=== PATIENT | female | born 1955 | race Caucasian/White ===

== ENCOUNTER 2016-06-26 11:42 | Emergency (ER) | payer OTHER ==
[~2016-06-26] VITALS: Ht 160 cm; Wt 85.0 kg
[~2016-06-26 11:42] MED LIST: ALPR0.25 PO; BIOT800T PO; CHOL3000 PO; ESTR0.5T PO; HYDR25TA6 PO; IBUP200T48 PO; LEVO25TA2 PO; OMEP20CA9 PO
[2016-06-26 14:23] VITALS: BP 125/68
[2016-06-26 14:30] LABS: BLOOD UREA NITROGEN 12 mg/dL (7-18)
[2016-06-26 14:36] LABS: HEMOGLOBIN 13.9 g/dL (11.7-16.4)
[2016-06-26 14:40] LABS: ASPARTATE AMINO TRANSFERASE 25 U/L (15-37); IS PT STATUS REG ER OR PRE ER? YES
== END 2016-06-26 15:26 | disposition home or self-care (01) ==
LOC: ED 12:35
DX: R07.89 Other chest pain (principal); E03.9 Hypothyroidism, unspecified
CPT/HCPCS: 36415; 71010; 80053; 84484; 85025; 85610; 85730; 93005

== ENCOUNTER → 2017-06-21 | Outpatient (CLI) | payer OTHER ==
[~2017-06-21] MED LIST changes: -IBUP200T48 PO; +IBUP200T49 PO
== END ==
LOC: CFH 09:44
PROVIDERS: ATTEND Internal Medicine
DX: Z02.9 Encounter for administrative examinations, unspecified (principal)

== ENCOUNTER → 2017-07-19 | Outpatient (CLI) | payer OTHER | END | disposition home or self-care (01) | LOC: CFH 08:17 | PROVIDERS: ATTEND Internal Medicine | DX: K43.9 Ventral hernia without obstruction or gangrene (principal) | CPT/HCPCS: 76705 ==

== ENCOUNTER → 2017-11-29 | Outpatient (CLI) | payer OTHER ==
[~2017-11-29] MED LIST changes: +CHOL100011 PO; +DICL50TA4 PO; +MAGNESIUM PO
== END | disposition home or self-care (01) ==
LOC: STAR 09:56
PROVIDERS: ATTEND Surgery
DX: Z01.818 Encounter for other preprocedural examination (principal); K43.9 Ventral hernia without obstruction or gangrene; Z88.5 Allergy status to narcotic agent
CPT/HCPCS: 93005